=== PATIENT | male | born 1975 | race Asian ===

== ENCOUNTER 2017-01-07 17:55 | Emergency (ER) | payer OTHER ==
[~2017-01-07] VITALS: Ht 167.6 cm; Wt 77.1 kg
[2017-01-07 17:55] VITALS: BP_SYST 151
[2017-01-07] MEDS ORDERED: ACETAMINOPHEN 500 MG TABLET PO ONE (18:15)
[2017-01-07 18:36] VITALS: BP_SYST 151
== END 2017-01-07 18:36 | disposition home or self-care (01) ==
LOC: SED 17:55
DX: S90.211A Contusion of right great toe with damage to nail, initial encounter (principal); I10 Essential (primary) hypertension; W20.8XXA Other cause of strike by thrown, projected or falling object, initial encounter; Y93.89 Activity, other specified; Y92.89 Other specified places as the place of occurrence of the external cause; Y99.8 Other external cause status
CPT/HCPCS: 99284

== ENCOUNTER 2017-06-24 08:50 | Outpatient (CLI) | payer OTHER ==
[2017-06-24 09:20] LABS: BASOPHILS % (AUTO) 0.6 % (0.0-2.0); EOSINOPHILS # (AUTO) 0.1 K/uL (0.0-0.4); EOSINOPHILS % (AUTO) 2.2 % (0.0-4.0); HEMATOCRIT 49.3 % (36-54); LYMPHOCYTES # (AUTO) 2.2 K/uL (1.0-5.5); LYMPHOCYTES % (AUTO) 38.5 % (20.5-51.5); MEAN CORPUSCULAR HEMOGLOBIN 29 pg (27-31); MEAN CORPUSCULAR HGB CONC 32 % (32-36); MEAN CORPUSCULAR VOLUME 89 fL (79.0-98.0); MONOCYTES # (AUTO) 0.4 K/uL (0.0-1.0); MONOCYTES % (AUTO) 6.3 % (1.7-9.3); NEUTROPHILS % (AUTO) 52.4 % (40.0-70.0); PLATELET COUNT (AUTO) 194 K/uL (130-430); RED BLOOD CELL COUNT(AUTO) 5.57 MIL/uL (4.2-6.2); WHITE BLOOD COUNT (AUTO) 5.7 K/uL (4.8-10.8)
[2017-06-24 09:51] LABS: ALBUMIN 4.7 g/dL (3.4-4.8); CALCIUM 9.8 mg/dL (8.4-11.0); CREATININE 1.05 mg/dL (0.55-1.30); POTASSIUM 4.2 mmol/L (3.5-5.1); THYROID STIMULATING HORMONE 0.89 uIu/mL (0.34-4.82); TOTAL BILIRUBIN 0.6 mg/dL (0.0-1.0)
[2017-06-25 08:28] LABS: HEMOGLOBIN A1C 5.4 % (4.8-5.6)
== END 2017-06-24 18:39 | disposition home or self-care (01) ==
LOC: SLB 08:50
PROVIDERS: ATTEND Internal Medicine
DX: Z00.01 Encounter for general adult medical examination with abnormal findings (principal); R79.89 Other specified abnormal findings of blood chemistry
CPT/HCPCS: 36415; 80053; 80061; 82306; 82607; 83036; 84402; 84403; 84443-TC; 85025

== ENCOUNTER 2017-09-18 08:09 | Day surgery (SDC) | payer OTHER ==
[2017-09-18] MEDS ORDERED: MEPERIDINE HCL/PF 100 MG/ML AMP ONE (08:18)
[2017-09-18] MEDS ORDERED: SIMETHICONE 40 MG/0.6 ML ML ONE (08:19)
[2017-09-18] MEDS ORDERED: MIDAZOLAM HCL 5 MG/5 ML VIAL ONE (08:19)
[2017-09-18] MEDS: MIDAZOLAM HCL 5 MG/5 ML VIAL ONE ×3 (09:18→09:23)
[2017-09-18 15:34] VITALS: BP_SYST 109
== END 2017-09-18 10:55 | disposition home or self-care (01) ==
LOC: SMU 08:09 → SDS 08:09
PROVIDERS: ATTEND Internal Medicine Gastroenterology
DX: D12.5 Benign neoplasm of sigmoid colon (principal); K63.5 Polyp of colon; K64.8 Other hemorrhoids
CPT/HCPCS: 45380; 88305; J2175; J2250

== ENCOUNTER 2017-10-01 08:46 | Outpatient (CLI) | payer OTHER | END 2017-10-01 18:43 | disposition home or self-care (01) | LOC: SMI 08:46 | PROVIDERS: ATTEND Internal Medicine | DX: S43.491A Other sprain of right shoulder joint, initial encounter (principal); S43.492A Other sprain of left shoulder joint, initial encounter; X58.XXXA Exposure to other specified factors, initial encounter; Y93.89 Activity, other specified; Y92.89 Other specified places as the place of occurrence of the external cause; Y99.8 Other external cause status | CPT/HCPCS: 73221 ==